=== PATIENT | female | born 1995 | race Caucasian/White ===

== ENCOUNTER 2019-03-11 08:48 | Emergency (ER) | payer OTHER ==
[~2019-03-11] VITALS: Wt 90.0 kg
[~2019-03-11 08:48] MED LIST: CIPR500T4 PO; CLIN300C10 PO; NO MEDS; ONDA4TAB35 PO
[2019-03-11 08:50] VITALS: BP 141/91; PULSE 90; RESP 18
[2019-03-11] MEDS ORDERED: METOCLOPRAMIDE 10 MG INJ IV STA (09:24)
[2019-03-11] MEDS ORDERED: KETOROLAC 30 MG INJ IM STA (09:24)
--- NOTE | 2019-03-11 09:31 | ERD ---
ER Documentation Chief Complaint Chief Complaint PARSONS X 4 DAYS HPI 23-year-old female with past medical history of anxiety, no past surgical history who presents with complaint of 4 days of right temporal headache. When asked patient points to the back of the ear as to the main foci of headache. Describes 6 out of 10 pain occurring every 30 minutes or so with associated nausea but no vomiting, left eye blurry vision. First noticed symptoms on Friday when she states she heard a a "crackle sound" on the right side of her head followed by a feeling of warmth to the same area. She denies any history of fall or trauma, seizure disorder history, family history of stroke or cardio vascular disease. She took ibuprofen which did not help with pain intensity but decrease left between headache recurrence. She denies any drug or alcohol abuse. She otherwise denies chest pain, shortness of breath, dyspnea, abdominal pain, urinary symptoms., Sinus congestion, recent URI type symptoms. Time examination patient is completely appropriate and alert answering all examination questions with reassuring examination. ROS All systems reviewed and are negative except as per history of present illness. Medications Home Meds Active Scripts Cetirizine Hcl* (Zyrtec*) 10 Mg Capsule, 10 MG PO DAILY, #10 TAB.CHEW Prov:MUKESH MARLEY PA-C 03/11/19 Pseudoephedrine Hcl* (Nasal Decongestant*) 30 Mg Tablet, 30 MG PO Q6 PRN for CONGESTION for 10 Days, TAB Prov:MUKESH MARLEY PA-C 03/11/19 Ondansetron (Ondansetron Odt) 4 Mg Tab.rapdis, 4 MG PO Q6H PRN for NAUSEA AND/OR VOMITING, #10 TAB Prov:MUKESH MARLEY PA-C 03/11/19 Naproxen* (Naprosyn*) 500 Mg Tablet, 500 MG PO BID PRN for PAIN AND/OR INFLAMMATION, #30 TAB Prov:MUKESH MARLEY PA-C 03/11/19 Clindamycin Hcl* (Clindamycin Hcl*) 300 Mg Capsule, 300 MG PO TID for 10 Days, CAP Prov:COLEMAN WASHINGTON PA-C 10/23/18 Ciprofloxacin Hcl* (Ciprofloxacin Hcl*) 500 Mg Tablet, 500 MG PO BID for 3 Days, TAB Prov:PATTI MCKEON NP 08/24/15 Ondansetron Hcl* (Zofran* ODT) 4 mg -ODT Tab.disper, 4 MG PO Q6 PRN for NAUSEA AND/OR VOMITING, #10 TAB Prov:PATTI MCKEON NP 08/24/15 Reported Medications [No Meds] No Conflict Check 01/07/11 Allergies Allergies: Coded Allergies: No Known Drug Allergies (Verified Allergy, Mild, 01/07/11) PMhx/Soc Medical and Surgical Hx: pt denies Medical Hx, pt denies Surgical Hx History of Surgery: No Anesthesia Reaction: No Hx Neurological Disorder: No Hx Respiratory Disorders: No Hx Cardiac Disorders: No Hx Psychiatric Problems: No Hx Miscellaneous Medical Probl: No Hx Alcohol Use: Yes Hx Substance Use: No Hx Tobacco Use: No FmHx Family History: No diabetes, No coronary disease, No other Physical Exam Vitals Vital Signs Date Temp Pulse Resp B/P (MAP) Pulse Ox O2 O2 Flow FiO2 Time Delivery Rate 03/11/19 98.7 90 18 141/91 99 08:50 (108) Physical Exam I have reviewed the triage vital signs. Const: Well nourished, well developed, appears stated age Eyes: PERRL, no conjunctival injection HENT: NCAT, Neck supple without meningismus CV: RRR, Warm, well-perfused extremities RESP: CTAB, Unlabored respiratory effort GI: soft, non-tender, non-distended, no masses MSK: No gross deformities appreciated Skin: Warm, dry. No rashes Neuro: grossly non focal Psych: Appropriate mood and affect. Result Diagram: 03/11/1936 03/11/19 0936 Results 24 hrs Laboratory Tests Test 03/11/19 09:36 03/11/19 09:55 White Blood Count 7.8 10^3/ul Red Blood Count 4.62 10^6/ul Hemoglobin 12.7 g/dl Hematocrit 39.9 % Mean Corpuscular Volume 86.4 fl Mean Corpuscular Hemoglobin 27.5 pg Mean Corpuscular Hemoglobin Concent 31.8 g/dl Red Cell Distribution Width 13.2 % Platelet Count 246 10^3/UL Mean Platelet Volume 9.9 fl Immature Granulocytes % 0.400 % Neutrophils % 58.1 % Lymphocytes % 33.4 % Monocytes % 6.0 % Eosinophils % 1.8 % Basophils % 0.3 % Nucleated Red Blood Cells % 0.0 /100WBC Immature Granulocytes # 0.030 10^3/ul Neutrophils # 4.6 10^3/ul Lymphocytes # 2.6 10^3/ul Monocytes # 0.5 10^3/ul Eosinophils # 0.1 10^3/ul Basophils # 0.0 10^3/ul Nucleated Red Blood Cells # 0.0 10^3/ul Sodium Level 143 mmol/L Potassium Level 3.8 mmol/L Chloride Level 107 mmol/L Carbon Dioxide Level 27 mmol/L Anion Gap 9 Blood Urea Nitrogen 7 mg/dl Creatinine 0.42 mg/dl Est Glomerular Filtrat Rate mL/min > 60 mL/min Glucose Level 106 mg/dl Calcium Level 8.6 mg/dl POC Beta HCG, Qualitative NEGATIVE Current Medications Medications Dose Sig/Serjio Start Time Status Last (Trade) Ordered Route PRN Stop Time Admin Dose Reason Admin 10 mg ONCE STAT 03/11/19 DC 03/11/19 Metoclopramid IV 09:24 10:04 e HCl 03/11/19 09:27 (Reglan) Ketorolac 30 mg ONCE STAT 03/11/19 DC 03/11/19 Tromethamine IM 09:24 10:04 (Toradol) 03/11/19 09:27 10 mg ONCE ONCE 03/11/19 Dexamethasone PO 10:30 (Decadron) 03/11/19 10:31 Procedures/MDM This patient presents with a headache most consistent with right-sided temporal headache. Differential diagnosis includes migraine versus tension type headache. No headache red flags. Neurologic exam without evidence of meningismus, focal neurologic findings. Presentation not consistent with acute intracranial bleed to include SAH (lack of risk factors, headache history). Presentation not consistent with acute HOME OFFICE CLAIMS EXAMINER infection to include meningitis or brain abscess, Temporal arteritis unlikely, as is acute angle closure glaucoma given history and physical findings. Presentation not consistent with other acute, emergent causes of headache at this time. Plan to treat symptomatically with pain medication. No indication for imaging/LP at this time. Plan: pain medication, CT brain with evidence of frontal sinusitis, no no other acute findings. She is afebrile without signs of systemic infection and symptoms less than 4 days so doubt sinusitis infection warranting antibiotic treatment at this time. Will discharge with pseudoephedrine, Zyrtec, strict return precautions explained, patient advised follow-up with PMD DISPOSITION PLAN: We discussed follow up with the patient's primary care doctor within 24 to 48 hours. Patient counseled regarding my diagnostic impression and care plan. Prior to discharge all questions answered. Pt agrees with treatment plan and understands strict return precautions. Precautionary instructions provided including instructions to return to the ER if not improving or for any worsening or changing symptoms or concerns. Disclaimer: Inadvertent spelling and grammatical errors are likely due to EHR/dictation software use and do not reflect on the overall quality of patient care. Also, please note that the electronic time recorded on this note does not necessarily reflect the actual time of the patient encounter. Departure Condition: Stable MUKESH MARLEY PA-C March 11, 2019 09:31
[2019-03-11] MEDS ORDERED: NAPR-985 PO (10:10)
[2019-03-11] MEDS ORDERED: ONDA4TAB14 PO (10:11)
[2019-03-11] MEDS ORDERED: BEN25 PO (10:11)
[2019-03-11] MEDS ORDERED: CETI10CA PO (10:20)
[2019-03-11] MEDS ORDERED: [UNRECOGNIZED DRUG - CODE] PO (10:20)
[2019-03-11] MEDS ORDERED: DEXAMETHASONE 4 MG TAB PO ONE (10:30)
== END 2019-03-11 10:50 | disposition home or self-care (01) ==
LOC: FTE 08:48
DX: R51 Headache (principal)
CPT/HCPCS: 70450; 80048; 81025; 85025; 96372; 96374; J1885; J2765; Z7502; Z7610